=== PATIENT | male | born 1970 | race Caucasian/White ===

== ENCOUNTER → 2023-01-20 | Day surgery (SDC) | payer MEDICAID ==
[~2023-01-20] VITALS: Ht 180.3 cm; Wt 100.0 kg
[~2023-01-20] MED LIST: GLYCOPYRROLATE 0.2 MG/ML VIAL IM ONE; LIDOCAINE/PF 2% 5 ML SYRINGE IVP ONE; OXYGEN THERAPY IH SCH; PROPOFOL 1% 20 ML VIAL IVP ONE; SODIUM CHLORIDE 0.9% 1,000 ML IV ONE; SODIUM CHLORIDE 0.9% 1,000 ML ONE
== END | disposition still patient (30) ==
LOC: SURGERY 07:52
PROVIDERS: ATTEND Specialist
DX: I85.00 Esophageal varices without bleeding (principal); I10 Essential (primary) hypertension; E11.9 Type 2 diabetes mellitus without complications; I25.10 Atherosclerotic heart disease of native coronary artery without angina pectoris; K31.89 Other diseases of stomach and duodenum; D50.9 Iron deficiency anemia, unspecified; Z98.890 Other specified postprocedural states
CPT/HCPCS: 43244; J2704; J3490 ×2; J7030